=== PATIENT | male | born 1965 | race Caucasian/White ===

== ENCOUNTER 2022-10-25 11:43 | Emergency (ER) | payer OTHER ==
[~2022-10-25] VITALS: Ht 175.3 cm; Wt 95.4 kg
[2022-10-25] MEDS ORDERED: PANTOPRAZOLE 40 MG/10 ML VIAL INJ IV ONE (12:45)
[2022-10-25] MEDS ORDERED: DexAMETHasone SOD PHOS 10MG/1ML VIAL INJ IV ONE (12:45)
[2022-10-25] MEDS ORDERED: diphenhdrAMINE HCL 50 MG/1 ML VL IV ONE (12:45)
[2022-10-25] MEDS ORDERED: IOHEXOL 300 MG/ML 100ML BOTTLE IJ ONE (12:47)
[2022-10-25 12:59] LABS: Basophils # (auto) 0 10 ^3/uL (0-0.2); Basophils % (auto) 0.5 % (0.0-2.0); Eosinophils # (auto) 0 10 ^3/uL (0-0.8); Eosinophils % (auto) 0.5 % (0.0-7.0); Hematocrit 40.4 % (41.0-53.0); Lymphocytes # (auto) 1.1 10 ^3/uL (0.4-5.4); Lymphocytes % (auto) 14.7 % (10.0-50.0); Mean Corpuscular Hemoglobin 30.7 pg (28.0-32.0); Mean Corpuscular Hgb Conc. 34.6 g/dL (32.0-36.0); Mean Corpuscular Volume 88.6 fL (80.0-100.0); Monocytes # (auto) 0.4 10 ^3/uL (0-1.3); Monocytes % (auto) 5.4 % (0.0-12.0); Neutrophils # (auto) 6.2 10 ^3/uL (1.6-8.6); Neutrophils % (auto) 78.9 % (37.0-80.0); Nucleated Red Blood Cells % 0.1 %; Red Blood Cells 4.56 10^6/uL (4.5-5.90); Red Cell Distribution Width 13.5 % (11.8-14.3); White Blood Cell 7.8 10^3/uL (4.4-10.8)
[2022-10-25 13:19] LABS: Potassium 4.2 mmol/L (3.5-5.1)
[2022-10-25 13:25] LABS: Albumin 3.9 g/dL (3.4-5.0); BUN/Creatinine Ratio 18.5 (10.0-20.0); Calcium 9.5 mg/dL (8.5-10.1); Total Protein 6.8 g/dL (6.4-8.2)
[2022-10-25] MEDS ORDERED: LACTATED RINGER'S 1,000 ML IV ONE (14:15)
[2022-10-25] MEDS ORDERED: METR-344 PO (14:36)
[2022-10-25] MEDS ORDERED: ZOFR4T PO (14:36)
[2022-10-25] MEDS ORDERED: CIPR-173 PO (14:36)
[2022-10-25] MEDS: PANTOPRAZOLE 40mg/50ML NS AE 50 ML IV ONE ×2 (14:46→14:54)
[2022-10-25 15:44] VITALS: BP 128/80
[2022-10-25 15:58] LABS: Urine Bacteria NONE SEEN /hpf (None Seen); Urine Blood Negative /uL (Negative); Urine Mucus FEW (None Seen); Urine WBC 1 /hpf (0 - 3)
[2022-10-25 16:02] LABS: Urine Specific Gravity > 1.050 (1.001-1.035)
== END 2022-10-25 15:47 | disposition home or self-care (01) ==
LOC: ER 11:43
DX: K57.92 Diverticulitis of intestine, part unspecified, without perforation or abscess without bleeding (principal); I10 Essential (primary) hypertension
CPT/HCPCS: 36415; 71045; 74177; 80053; 81001; 83690; 83880; 84484; 85025; 85384; 96361; 96374; 96375; 99285; C9113; J1100; J1200; Q9967